=== PATIENT | female | born 1990 | race Caucasian/White ===

== ENCOUNTER 2018-04-01 18:57 | Emergency (ER) | payer OTHER ==
[2018-04-01] MEDS ORDERED: ONDANSETRON 4 MG INJ (20:10)
[2018-04-01] MEDS: morphine 2 MG INJ IV (20:18)
[2018-04-01] MEDS: ONDANSETRON 4 MG INJ IV ×2 (20:19→20:29)
[2018-04-01] MEDS: LIDOCAINE 1% (MDV) 10 ML INJ INFIL (20:20)
[2018-04-01] MEDS: ERTAPENEM SODIUM 1 GM in SOD CHLORIDE 0.9% 100 ML IVPB (20:30)
[2018-04-01] MEDS: DEXAMETHASONE 10 MG/ML 1 ML INJ IV (20:38)
[2018-04-01] MEDS: IBUPROFEN 600 MG TAB PO (21:55)
== END 2018-04-01 22:17 | disposition home or self-care (01) ==
LOC: FTE 18:57
DX: L02.31 Cutaneous abscess of buttock (principal)
CPT/HCPCS: 10061; 96374; 96375; 99284-25

== ENCOUNTER 2018-07-29 08:12 | Emergency (ER) | payer OTHER | END 2018-07-29 09:23 | disposition home or self-care (01) | LOC: FTE 08:12 | DX: J30.2 Other seasonal allergic rhinitis (principal) | CPT/HCPCS: 99282; Z7502 ==

== ENCOUNTER 2018-10-02 17:00 | Emergency (ER) | payer OTHER | END 2018-10-02 17:59 | disposition home or self-care (01) | LOC: FTE 17:00 | DX: S80.861A Insect bite (nonvenomous), right lower leg, initial encounter (principal); L03.115 Cellulitis of right lower limb; W57.XXXA Bitten or stung by nonvenomous insect and other nonvenomous arthropods, initial encounter; Y92.9 Unspecified place or not applicable | CPT/HCPCS: 99283; Z7502 ==

== ENCOUNTER 2018-12-28 08:26 | Emergency (ER) | payer OTHER | END 2018-12-28 09:16 | disposition home or self-care (01) | LOC: FTE 08:26 | DX: H66.002 Acute suppurative otitis media without spontaneous rupture of ear drum, left ear (principal) | CPT/HCPCS: 99283; Z7502 ==

== ENCOUNTER 2019-05-06 17:06 | Emergency (ER) | payer OTHER | END 2019-05-06 19:14 | disposition home or self-care (01) | LOC: FTE 17:06 | DX: L03.90 Cellulitis, unspecified (principal) | CPT/HCPCS: 99283; Z7502 ==

== ENCOUNTER 2019-07-30 10:14 | Emergency (ER) | payer OTHER ==
[2019-07-30] MEDS: LIDOCAINE 2% (MDV) 20 ML INJ INJ (12:17)
[2019-07-30] MEDS: ONDANSETRON (ODT) 4 MG TAB ODT (12:17)
[2019-07-30] MEDS: ACETAMINOPHEN 500 MG TAB PO (12:17)
[2019-07-30] MEDS: LIDOCAINE 4% CR TOP (12:25)
== END 2019-07-30 13:15 | disposition home or self-care (01) ==
LOC: FTE 10:14
DX: L02.31 Cutaneous abscess of buttock (principal); N39.0 Urinary tract infection, site not specified; Z87.891 Personal history of nicotine dependence
CPT/HCPCS: 10060; 81001; 81003; 81025; 99283-25